=== PATIENT | male | born 1985 | race Hispanic/Latino ===

== ENCOUNTER 2023-12-13 17:14 | Emergency (ER) | payer SELFPAY ==
[2023-12-13 17:17] VITALS: BP 181/114
[2023-12-13 17:58] LABS: % Basophils 0.8 % (0-2); % Eosinophils 4.7 % (0-6); % Immature Granulocytes 0.5 % (0-0.5); % Lymphocytes 27.3 % (20.5-51.1); % Monocytes 10.2 % (1.7-9.3); % Neutrophils 56.5 % (42.2-75.2); Absolute Basophils 0.1 10^3/uL (0-0.2); Absolute Eosinophils 0.4 10^3/uL (0-0.7); Absolute Lymphocytes 2.4 10^3/uL (1.2-3.4); Absolute Monocytes 0.9 10^3/uL (0.1-0.6); Absolute Neutrophils 4.9 10^3/uL (1.4-6.5); Hematocrit 39.6 % (39.0-52.0); Hemoglobin 14.4 g/dL (13.0-18.0); Mean Corp Hgb Conc. 36.4 g/dL (33.0-37.0); Mean Corpuscular Hgb 32.5 pg (27.0-31.0); Mean Corpuscular Volume 89.4 fL (80.0-94.0); Mean Platelet Volume 9.1 fL (7.4-10.4); Nucleated Red Blood Cells % 0 % (-); Platelet Count 332 10^3/uL (130-400); Red Blood Cell Count 4.43 10^6/uL (4.70-6.10); Red Cell Dist. Width 12.5 % (11.5-14.5); White Blood Cell Count 8.7 10^3/uL (4.8-10.8)
[2023-12-13 18:08] LABS: ALT (SGPT) 41 U/L (0-50); AST (SGOT) 40 U/L (17-59); Albumin 4.7 g/dl (3.5-5.0); Alkaline Phosphatase 116 U/L (38-126); Blood Urea Nitrogen 21 mg/dl (9-20); Calcium 9.7 mg/dl (8.4-10.2); Carbon Dioxide 28 mmol/L (22-30); Chloride 98 mmol/L (98-107); Glucose 71 mg/dl (70-99); Sodium 137 mmol/L (135-145); Total Bilirubin 0.5 mg/dl (0.2-1.3); Total Protein 7.7 g/dl (6.3-8.2); eGFR > 60.00
--- NOTE | 2023-12-13 21:43 | ED.GENMED ---
History of Present Illness
General
Chief Complaint: Blood Pressure Problem
Source: patient
Time Seen by Provider: 12/13/23 21:31
Travel History
Have you had any contact with someone who has COVID-19?: No
Do you have any symptoms of coronavirus? Fever > 100 degrees, chills, cough, shortness of breath, sore throat, loss of taste or smell, muscle aches, or headache?: No
History of Present Illness
History of Present Illness:
38-year-old male presents to the emergency room because he has an elevated blood pressure. Patient has been monitoring his blood pressure intermittently over the past couple months. It has consistently been in the 170 range. He denies any chest
pain, shortness breath, headache. Patient does not have a primary care doctor so decided to come to the emergency room for advice on what to do about his blood pressure. Patient does smoke occasionally but not every day. 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
Phy Exam
Physical Exam
Physical Exam:
General: Awake, Alert, Oriented X3. No acute distress.
Vitals: Hypertensive
Head: Atraumatic
Eyes: Pupils equal, EOMI
Throat: Airway intact, no exudates
Neck: Trachea midline
Lungs: Clear and equal b/l
Heart: Regular rate, no murmurs
Abd: Soft, Nontender, No pulsatile mass
Neuro: Nonfocal
Skin: Warm, dry, no rash
Extremities: pulses equal b/l, no edema
Course
Orders/Labs/Results
Orders:
Orders
12/13/23 17:20
EKG [Electrocardiogram (*1)] Urgent
Reason for Study: Hypertension, Benign
EKG- Treatment ONCE
12/13/23 17:28
Complete Blood Count/With Diff Urgent
Comprehensive Metabolic Panel Urgent
12/13/23 21:42
Lisinopril [Zestril] 10 mg PO NOW STA
Abnormal Lab Results
12/13/23
17:28
RBC 4.43 L 10^6/uL
(4.70-6.10)
MCH 32.5 H pg
(27.0-31.0)
Absolute Monos (auto) 0.9 H 10^3/uL
(0.1-0.6)
Monocytes % 10.2 H %
(1.7-9.3)
BUN 21 H mg/dl
(9-20)
12/13/23 17:28
12/13/23 17:28
Vital Signs
Initial and Last Documented VS:
Initial Vital Signs
Pulse Resp BP Pulse Ox
115 18 181/114 98
12/13/23 17:17 12/13/23 17:17 12/13/23 17:17 12/13/23 17:17
Last Documented Vital Signs
Pulse Resp BP Pulse Ox
87 14 157/103 98
12/13/23 22:15 12/13/23 22:15 12/13/23 22:15 12/13/23 22:15
MDM/Problems Addressed
Differential Diagnosis Includes:
Uncontrolled hypertension
MDM/Problems Addressed:
Given the patient does not have a primary care doctor follow-up with me will start lisinopril until he can follow-up with someone. Message sent to the family practice residency clinic to see if they can get him in. No evidence of end-organ damage.
We did discuss the importance of smoking sensation techniques to help with this including nicotine patch or gum.
*Pulse Oximetry
Patient hypoxic: no
*EKG
Comparison EKG: no comparison EKG present
Heart Rate: 104
Rate: tachycardiac
Rhythm: sinus tachycardia
[place]: normal axis
Interval: normal interval
QRS Pattern: normal QRS
Ischemia: no ischemia
*Event Planning Intern Interpretation
Rate: tachycardiac
Heart Rate: 104
Rhythm: sinus tachycardia
*Critical Care Note
Total Time (30-74mins, 75-104mins- exclusive of procedures): Not Applicable
ED Attending Note
-
Portions of this chart may have been created with voice recognition software.� Occasional wrong word or��sound alike� substitutions may have occurred due to the inherent limitations of voice recognition software.
Discharge Plan
Departure
Patient Disposition: Home (Routine Discharge)
Date of Disposition: 12/13/23
Time of Disposition: 21:43
Patient with high blood pressure during this ER visit?: Yes
Condition: Good
Discharge Problem:
Hypertension
Instructions: High Blood Pressure (DC)
Prescriptions:
New
lisinopril 10 mg tablet
10 mg PO DAILY Qty: 30 0RF
Referrals:
[facility] [Outside]
[facility] [Outside]
NONE,* [Family Provider] -
Activity Restrictions/Additional Instructions:
Take lisinopril once a day. Please follow up at the residency clinic who find a primary through your insurance. If you do not have insurance you can call the [facility] clinic and try to make an appointment with them. As discussed you could
potentially improve your blood pressure with exercise, changes in diet and weight loss.
Interventions
Interventions:
*Risk Screen - Suicide Last Done: 12/13/23 17:19
*General Assessment Last Done: 12/13/23 17:19
*Neglect/Abuse Screening Last Done: 12/13/23 17:19
ED- Fall Risk Assessment Last Done: 12/13/23 22:16
*ED COVID-19 Vaccine History Last Done: 12/13/23 22:13
*Nursing Disposition Last Done: 12/13/23 22:16
ED- Cardiac Assessment Last Done: 12/13/23 22:13
ED- Neurological Assessment Last Done: 12/13/23 22:13
ED- Pulmonary Assessment Last Done: 12/13/23 22:13
Discharge Date and Time
Discharge Date/Time: 12/13/23 22:18
[2023-12-13] MEDS: ZESTRIL 10 MG PO (22:00)
[2023-12-13 22:11] VITALS: BMI 30.6
[2023-12-13 22:15] VITALS: BP 157/103
== END 2023-12-13 22:18 | disposition home or self-care (01) ==
LOC: EMR 17:14
PROVIDERS: Emergency Medicine; EMERGENCY PHYSICIAN Emergency Medicine
DX: I10 Essential (primary) hypertension (principal)
CPT/HCPCS: 99283; 80053; 85025; 93005

== ENCOUNTER → 2024-03-13 16:52 | Outpatient (REF) | payer OTHER, SELFPAY | LOC: HWRAD 16:52 | PROVIDERS: ATTENDING PHYSICIAN Student in an Organized Health Care Education/Training Program | DX: M25.512 Pain in left shoulder (principal) | CPT/HCPCS: 73030 ==

== ENCOUNTER → 2024-03-25 15:50 | Outpatient (REF) | payer OTHER, SELFPAY | LOC: HWRAD 15:50 | PROVIDERS: ATTENDING PHYSICIAN Student in an Organized Health Care Education/Training Program | DX: M25.511 Pain in right shoulder (principal) | CPT/HCPCS: 73030 ==

== ENCOUNTER → 2024-11-06 13:58 | Outpatient (REF) | payer OTHER, SELFPAY | LOC: DHSLP 13:58 | PROVIDERS: ATTENDING PHYSICIAN Internal Medicine; FAMILY PHYSICIAN Student in an Organized Health Care Education/Training Program | DX: G47.19 Other hypersomnia (principal); G47.8 Other sleep disorders; R06.83 Snoring | CPT/HCPCS: 95800 ==

== ENCOUNTER → 2025-06-20 10:28 | Outpatient (REF) | payer OTHER, SELFPAY | LOC: HWRAD 10:28 | PROVIDERS: ATTENDING PHYSICIAN Student in an Organized Health Care Education/Training Program | DX: M54.50 Low back pain, unspecified (principal) | CPT/HCPCS: 72110; 72220 ==

== ENCOUNTER 2025-06-29 09:34 | Emergency (ER) | payer OTHER, SELFPAY ==
[2025-06-29 09:36] VITALS: BP 164/104
--- NOTE | 2025-06-29 10:16 | ED.GENMED ---
History of Present Illness
General
Chief Complaint: Musculo-Skeletal Complaint
Source: patient and spouse
Time Seen by Provider: 06/29/25 10:06
History of Present Illness
History of Present Illness:
39-year-old male presents to the emergency room for evaluation of back pain. Patient has been experiencing pain in his left low back, buttock area with radiation down the thigh. He has been experiencing numbness and tingling in the anterior ortiz
down to the foot. He has been evaluated by his primary care provider who initially prescribed a course of steroids. This really did not help. He was prescribed oxycodone 5 mg as well as Soma. Patient has not received any significant pain relief
with those medications. He does have an MRI scheduled in 3 days. Patient states the pain in tingling is worse when he walks for a while. He denies any bowel or bladder dysfunction. He denies any numbness or tingling about the scrotum or perineum.
Phy Exam
Physical Exam
Physical Exam:
General: Awake, Alert, Oriented X3. No acute distress.
Vitals: unremarkable
Head: Atraumatic
Eyes: Pupils equal, EOMI
Throat: Airway intact, no exudates
Neck: Trachea midline
Lungs: Clear and equal b/l
Heart: Regular rate, no murmurs
Abd: Soft, Nontender, No pulsatile mass
Neuro: Cranial nerves intact, muscle strength equal bilaterally, cerebellar exam normal. Decreased patellar reflex on the left. S1 reflexes intact.
Skin: Warm, dry, no rash
Extremities: pulses equal b/l, no edema
Course
Orders/Labs/Results
Orders:
Orders
06/29/25 10:14
Ketorolac [Toradol] 30 mg IV NOW STA
06/29/25 10:16
Gabapentin [Neurontin] 300 mg PO NOW STA
06/29/25 10:17
Lidocaine [Lidocaine 4% Patch] 1 patch TOPICAL NOW STA
Apply Lidocaine patch(s) to:: left low back
06/29/25 11:55
HYDROmorphone [Dilaudid] 1 mg IV NOW STA
Vital Signs
Initial and Last Documented VS:
Initial Vital Signs
Temp Pulse Resp BP Pulse Ox
98.2 F 102 18 164/104 99
06/29/25 09:36 06/29/25 09:36 06/29/25 09:36 06/29/25 09:36 06/29/25 09:36
Last Documented Vital Signs
Temp Pulse Resp BP Pulse Ox
98.2 F 91 18 135/85 98
06/29/25 09:36 06/29/25 12:05 06/29/25 12:05 06/29/25 12:05 06/29/25 12:05
MDM/Problems Addressed
Differential Diagnosis Includes:
Lumbar radiculopathy, compression fracture, muscle spasm
MDM/Problems Addressed:
Patient presents with low back pain in the left buttocks radiate down to the leg. Overall presentation seems most consistent with a lumbar radiculopathy. Patient has been prescribed meds through his family practice office without improvement.
Will add gabapentin. Dose of Dilaudid given here to help break the pain cycle. Patient given contact information for [facility] as patient would like to avoid operative management if he does have a herniation excetra. He has no focal
weakness, bowel or bladder dysfunction to suggest central cord compression.
*Pulse Oximetry
SaO2: 99
Oxygen Mode of Delivery: Room air
Patient hypoxic: no
*Critical Care Note
Total Time (30-74mins, 75-104mins- exclusive of procedures): Not Applicable
Data Reviewed
Review of Other/Old Records Reveals: Radiology Studies (Lumbar spine and sacral films obtained as an outpatient)
ED Attending Note
-
Portions of this chart may have been created with voice recognition software.� Occasional wrong word or��sound alike� substitutions may have occurred due to the inherent limitations of voice recognition software.
Discharge Plan
Departure
Patient Disposition: Home (Routine Discharge)
Date of Disposition: 06/29/25
Time of Disposition: 11:56
Patient with high blood pressure during this ER visit?: No
Condition: Good
Discharge Problem:
Acute left lumbar radiculopathy
Instructions: Radiculopathy of the neck and back (including sciatica) (DC)
Prescriptions:
New
gabapentin 300 mg capsule
300 mg PO TID Qty: 60 0RF
No Action
lisinopril 10 mg tablet
10 mg PO DAILY Qty: 30 0RF
Referrals:
Tray Miller MD [Active, Anesthesiology]
Arden Penaloza MD, Resident [Family Provider, General]
Activity Restrictions/Additional Instructions:
You should take 60 mg of ibuprofen and 650 mg of acetaminophen every 6 hours. I have sent a prescription for gabapentin which can take 3 times a day for pain as well. Use the oxycodone on an as needed basis for severe pain. Call Dr. Miller's
office in the morning to set up an appointment. Return to the emergency room if you develop any numbness or tingling around your anus or scrotum, have difficulty with urinating or feel like you are developing weakness in your lower extremities.
Interventions
Interventions:
*Risk Screen - Suicide Last Done: 06/29/25 09:36
*General Assessment Last Done: 06/29/25 09:36
*Neglect/Abuse Screening Last Done: 06/29/25 10:05
*ED- Fall Risk Assessment Last Done: 06/29/25 10:55
*ED COVID-19 Vaccine History Last Done: 06/29/25 10:55
*Nursing Disposition Last Done: 06/29/25 12:23
ED-Musculoskeletal Assessment Last Done: 06/29/25 11:03
Discharge Date and Time
Discharge Date/Time: 06/29/25 12:15
Print Language: [place]OM[place]
[2025-06-29] MEDS: LIDOCAINE 4% PATCH 1 PATCH TOPICAL (10:47)
[2025-06-29] MEDS: NEURONTIN 300 MG PO (10:47)
[2025-06-29] MEDS: TORADOL 30 MG IV (10:54)
[2025-06-29 10:55] VITALS: BMI 31.8
[2025-06-29] MEDS: DILAUDID 1 MG IV (11:59)
[2025-06-29 12:05] VITALS: BP 135/85
== END 2025-06-29 12:15 | disposition home or self-care (01) ==
LOC: EMR 09:34
PROVIDERS: EMERGENCY PHYSICIAN Emergency Medicine; FAMILY PHYSICIAN Student in an Organized Health Care Education/Training Program
DX: M54.16 Radiculopathy, lumbar region (principal)
CPT/HCPCS: 99282; 96374; 96375

== ENCOUNTER → 2025-07-02 13:29 | Outpatient (REF) | payer OTHER, SELFPAY | LOC: MRI 3T 13:29 | PROVIDERS: ATTENDING PHYSICIAN Student in an Organized Health Care Education/Training Program | DX: R29.898 Other symptoms and signs involving the musculoskeletal system (principal); M54.16 Radiculopathy, lumbar region; R29.2 Abnormal reflex; M54.50 Low back pain, unspecified | CPT/HCPCS: 72158; A9575 ==